=== PATIENT | male | born 1975 | race Caucasian/White ===

== ENCOUNTER 2016-09-06 17:53 | Emergency (ER) | payer SELFPAY ==
[2016-09-06] MEDS ORDERED: Lidocaine 1% 10 MG/ML - 20 ML VIAL SUBCUT ONE (18:12)
[2016-09-06 18:47] VITALS: RESP 16; TEMP 98.2
--- NOTE | 2016-09-07 05:50 | PDOC ---
Upper Ext Injury HPI - General Chief Complaint: Laceration / Wound Stated Complaint: LEFT FOREARM LACERATION Date Seen by Provider: 09/06/16 Time Seen by Provider: 18:02 Source: POSITIVE: Patient Exam Limitations: POSITIVE: No limitations Nurse's Notes Reviewed & Considered: Yes - History of Present Illness Initial Comments: The patient is a 41-year-old male. He was working on a muffler on his truck. Muffler fell and the sharp edge of the muffler struck the volar aspect of his left forearm and he sustained 2 lacerations to the volar aspect of the forearm and 2 abrasions over the ulnar aspect of the left radial distal forearm Have you received a tetanus shot in the past 10 years?: Yes Body Location Affected: REPORTS: Upper Extremity (L) Timing: REPORTS: Abrupt Duration: 1 hour Severity: Moderate Quality: REPORTS: "Pain" (Some pain locally at site of laceration. No bone pain.) Location at Time of Onset: REPORTS: Home Context of Injury: REPORTS: Incision Modifying Factors: REPORTS: Other (Direct palpation) Associated Symptoms: REPORTS: Arm (L). DENIES: Arm (R), Tingling Distally, Numbness Distally, Loss of Feeling, Loss of Power, Other Any Prior Injuries Related to Current Complaint?: No - Patient Home Medications Home Medications: Home Medications NK [No Home Medications Reported] 09/06/16 - Patient Allergies Allergies/Adverse Reactions: Allergies Allergy/AdvReac Type Severity Reaction Status Date / Time Penicillins Allergy HIVES Verified 09/06/16 18:02 Past Medical History - heen HEENT History: Denies History Cardiovascular History: Denies History Respiratory History: Denies History Gastrointestinal History: Denies History Genitourinary History: Denies History Endocrine History: Denies History Musculoskeletal History: Denies History Neurological History: Denies History Blood Disorders: Denies History Psychiatric History: Denies History History of Sexually Transmitted Diseases: No Male Reproductive History: Denies History Cancer History: Denies History In Past Year Been Physically Harmed or Verbally Threatened: No History of MDRO: No History of Other Communicable Diseases: No Tobacco Use: Never Smoker Alcohol Use: None Substance Use Type: None Previous Surgical History: Yes Type / Date of Surgery: TONSILECTOMY Anesthesia Reactions: No Significant Family History: No pertinent family hx Past Medical History Reviewed: Reviewed - No Changes ROS - Limitations ROS Limitations: No Limitations Constitution: REPORTS: Denies Symptoms Cardiovascular: REPORTS: Denies Cardiac Symptoms Respiratory: REPORTS: Denies Resp Symptoms Neurological: REPORTS: Denies Neuro Symptoms Gastrointestinal: REPORTS: Denies GI Symptoms Endocrine: REPORTS: Denies Symptoms Musculoskeletal: REPORTS: Recent Injury (Laceration 2 and abrasions 2 right forearm as above; see diagram.) Genitourinary: REPORTS: Denies Symptoms Eyes: REPORTS: Denies Symptoms ENT: REPORTS: Denies Symptoms Skin: REPORTS: Other (Laceration 2 and abrasions 2 left forearm) Lympathic: REPORTS: Denies Lympathic Symptoms Immunologic: POSITIVE: Denies Symptoms Psychiatric: POSITIVE: Denies Psych Symptoms Upper Ext Injury Exam - General Appearance General Appearance: POSITIVE: Alert, Cooperative, No Acute Distress. NEGATIVE: No Evidence of Trauma (Laceration 2 an abrasion 2 left forearm as above; see diagram) - Extremities Upper Extremity: POSITIVE: Normal Color, Normal ROM, Normal Temperature, Soft Tissue Tenderness, Skin Intact (Laceration 2 an abrasion 2 left forearm see diagram), See Diagram. NEGATIVE: Normal Inspection, Non-Tender, Bony Tenderness , Swelling, Ecchymosis, Deformity, Erythema, Limited ROM, Pulse Deficit, Snuff Box Position Tender, Axial Thumb Load Pain Neurovascular/Tendon: POSITIVE: Sensation Normal, Motor Normal, No Vascular Compromise Skin: POSITIVE: See Diagram (Lacerations and abrasions left forearm) - Neck / Back Neck/Back: POSITIVE: Normal Inspection, Non-Tender, Painless ROM - Respiratory / CVS Respiratory / CVS: POSITIVE: Chest Non Tender, No Ecchymosis, Breath Sounds Normal, No Respiratory Distress, Heart Sounds Normal, Regular Rate/Rhythm Peripheral Pulses: Radial (R): 2+, Radial (L): 2+ Procedures - Laceration/Wound Repair Did patient have a laceration repair: Yes Site of Laceration/Wound: Left forearm Wound Length (cm): 6.6 Wound's Depth, Shape: Into subcutaneous tissue, Linear Time of Suture Placement:: 18:15 Distal CMS: Yes Skin Prep: Sterile Field Maintained, Sterile Drapes Applied, Sterile Dressing Applied, Shur-Clens Local Anesthesia Used - Indicate Amt Used in Comment: Lidocaine 1%: Yes Irrigated w/ Saline (mL): 30 Wound Explored: No foreign body removed (Mildly contaminated with grease; cleansed with Hibiclens and irrigated copiously.) Wound Debrided: Minimal Wound Repaired With: Sutures single layer Suture Size/Type: 5:0, Ethilon Number of Sutures: 13 Layer Closure?: No Drain Placement: No Sterile Dressing Applied?: Yes Procedure Note:: After local anesthesia with 1% lidocaine the 2 lacerations of the volar aspect of the left forearm, one measuring 2 inches in length and the other one inch in length were copiously irrigated with normal saline. Wounds were also cleansed with Hibiclens remove some grease in the wound. Wounds were then repaired with 5-0 Ethilon sutures, combination of both simple interrupted sutures and vertical mattress sutures. Sterile dressing then applied. Images - Upper Extremities Upper Extremities: 1 - 1 inch laceration 2 - 2 inch laceration 3 - Abrasion 4 - Abrasion Upper Ext Injury Progress - Patient's Progress Pain Medication Addressed: POSITIVE: Yes (Advil or Tylenol for pain) School/Work Release Addressed: POSITIVE: Yes (Was keep sutures clean) Re-Examine Time: 18:49 Re-Examine Comment: Primary closure complete Status: POSITIVE: Improved, Re-Examined - Consult Counseled: POSITIVE: Patient, RE: DX, RE: Need for F/U Patient Care Time - Estimated PCT Patient Care Time (In Minutes): 40 Vital Signs - VS Reviewed Vital Signs Reviewed: Yes Discharge Clinical Impression: Laceration - injury Discharge Disposition: Discharged to Home Condition: Stable Patient Instructions Given at Discharge: Laceration (ED) Additional Instructions: Sutures clean. Wash abrasions with soap and water daily and apply bacitracin to the abrasions. Advil or Tylenol for pain. Return in 10 days for suture removal, or sooner at first sign of infection, or if condition worsens in any way whatsoever. Follow Up With: NONE,NONE [Primary Care Provider] - (Instructions as above. Return in 10 days for suture removal. Return anytime if condition worsens in any way.)
== END 2016-09-06 18:56 | disposition home or self-care (01) ==
LOC: ER 17:53
DX: S51.812A Laceration without foreign body of left forearm, initial encounter (principal); S50.812A Abrasion of left forearm, initial encounter; W45.8XXA Other foreign body or object entering through skin, initial encounter
CPT/HCPCS: 12002; 99282; J2001